=== PATIENT | female | born 1955 | race Caucasian/White ===

== ENCOUNTER 2016-10-18 11:53 | Emergency (ER) | payer OTHER ==
[~2016-10-18] VITALS: Ht 157.5 cm; Wt 91.0 kg
[~2016-10-18 11:53] MED LIST: CYCL5TAB PO; LORT5TAB PO; PIOG15 PO
[2016-10-18 11:58] VITALS: BP 128/67; PULSE 98; RESP 16; TEMP 98.7; O2SAT 97
[2016-10-18] MEDS ORDERED: SODIUM CHLOR 0.9% 1000 ML INJ 1,000 ML IV SCH (12:09)
[2016-10-18] MEDS ORDERED: KETOROLAC TROMETHAMINE 30 MG/ML (IVP) VIAL IVP ONE (12:15)
--- NOTE | 2016-10-18 12:18 | PD ---
HPI Chief Complaint: General Weakness Time Seen by Provider: 12:11 Travel History International Travel<30 days: No Contact w/Intl Traveler<30days: No Traveled to known affect area: No History of Present Illness HPI 61-year-old female that presents to the ED for evaluation of possible UTI. Per patient she's had symptoms since Thursday. Per patient she has polyuria, dysuria , cloudy urine and urgency for the past week. Per patient's symptoms seem to be worsening. Per patient she has pressure on her bladder as well as pain on her left flank. She denies any surgeries. Per patient she does have a history of UTIs. She also mentions to me that she has a history of diabetes and takes metformin for it but she unfortunately lost her insurance and she only takes an metformin here and there. Per patient she doesn't really check her sugars. She states that the metformin does give her diarrhea. She denies any chest pain or shortness of breath. She states that he feels weak and has chills. Denies any actual fevers. Per patient the discomfort 6 out of 10 when she urinates. Pain is 4 out of 10 in the flank. Gets worse when she urinates. She has not seen anybody for this. She also has a rash on her legs and her breasts that is itchy and pruritic. Not painful. She's had this for over a month but has not seen anybody for it or has done something for it. PFSH Past Medical History Hx Anticoagulant Therapy: No Cardiovascular Problems: Yes (CHOL) Diabetes: Yes Genitourinary: Yes (HX KIDNEY STONE) Respiratory: No ?: Not Menopausal: Yes Past Surgical History Hysterectomy: No Social History Alcohol Use: No Tobacco Use: Yes (1 PPD FOR 30 YEARS) Substance Use: No Allergies-Medications (Allergen,Severity, Reaction): Coded Allergies: No Known Allergies (Verified , 10/18/16) Reported Meds & Prescriptions Reported Meds & Active Scripts Active Miconazole Topical 2% Cream 1 Applic TOPICAL BID 14 Days Pyridium (Phenazopyridine HCl) 200 Mg Tab 200 Mg PO Q8H PRN Diclofenac Sodium DR (Diclofenac Sodium) 75 Mg Tabdr 75 Mg PO BID PRN Metformin (Metformin HCl) 1,000 Mg Tab 1,000 Mg PO BIDPC With meals Cipro (Ciprofloxacin HCl) 500 Mg Tab 500 Mg PO BID 7 Days Reported Metformin (Metformin HCl) 500 Mg Tab Unknown Dose PO DIRECTED With meals Review of Systems General / Constitutional: Positive: Chills Eyes: No: Diploplia, Blurred Vision, Photophobia, Drainage, Redness, Foreign Body Sensation, Pain, Tearing, Blind Spots, Visual changes, Blindness, Other HENT: No: Headaches, Vertigo, Lightheadedness, Sore Throat, Rhinitis, Rhinorrhea, Congestion, Nosebleed, Neck Stiffness, Neck Pain, Masses, Gingival Bleeding, Dental Difficulties, Ear Discharge, Earache, Other Cardiovascular: No: Chest Pain or Discomfort, Palpitations, Irregular Rhythm, Tachycardia, Diaphoresis, Syncope, Dyspnea on exertion, Varicosities, Edema, Cyanosis, Varicosities, Phlebitis, Claudication, Other Respiratory: No: Cough, Shortness of Breath, Wheezing, Sneezing, Orthopnea, Hemoptysis, Stridor, Night Sweats, Pleuritic Pain, Other Gastrointestinal: Positive: Abdominal Pain, No: Nausea, Vomiting, Diarrhea, Hematemesis, Hematochezia, Constipation, Changes in Bowel Habits, Indigestion, Dysphagia, Loss of Appetite, Other Genitourinary: Positive: Urgency, Frequency, Dysuria, Nocturia, Flank Pain, No : Hematuria, Decreased Urinary Output, Oliguria, Hesitancy, Dribbling, Incontinence, Pelvic Pain, Dyspareunia, Discharge, Dysmenorrhea, Menorrhagia, Metorrhagia, Vaginal Bleeding, Other Musculoskeletal: No: Myalgias, Arthralgias, Limited ROM, Weakness, Cramping, Edema, Pain, Atrophy, Other Skin: Positive Rash, Positive Itching, No Dryness, No Lumps, No Hives, No Change in Pigmentation, No Change in nails, No Alopecia, No Lesions, No Breast Lumps, No Breast Tenderness, No Breast Swelling, No Other Neurologic: No: Weakness, Dizziness, Syncope, Focal Abnormalities, Coordination Problem, Tremor, Ataxia, Headache, Change in Mentation, Slurred Speech, Paresthesia, Incontinence, Seizures, Sensory Disturbance, Other Psychiatric: No: Anxiety, Depression, Suicidal Ideations, Disorder of Thought, Mood Disorder, Substance Abuse, Homicidal Ideation, Other Endocrine: No: Heat Intolerance, Cold Intolerance, Polyuria, Polydipsia, Other Hematologic/Lymphatic: No: Easy Bruising Physical Exam Narrative GENERAL: SKIN: Warm and dry. Seen with female nurse present. Patient has a macular raised erythematous rash with a clear center noted on the skin. The breasts as well as in the legs. Pruritic and not painful. Surgical and not painful. No lymphadenopathy noted. HEAD: Atraumatic. Normocephalic. EYES: Pupils equal and round. No scleral icterus. No injection or drainage. ENT: No nasal bleeding or discharge. Mucous membranes pink and moist. Tongue is midline, no uvula deviation. NECK: Trachea midline. No JVD. CARDIOVASCULAR: Regular rate and rhythm. No murmurs, S3, S4. RESPIRATORY: No accessory muscle use. Clear to auscultation. Breath sounds equal bilaterally. GASTROINTESTINAL: Abdomen soft, non-tender, nondistended. Hepatic and splenic margins not palpable. MUSCULOSKELETAL: Extremities without clubbing, cyanosis, or edema. No obvious deformities. Full ROM of the upper and lower extremities bilaterally. 2+ pulses bilaterally. No obvious CVA tenderness. NEUROLOGICAL: Awake and alert. No obvious cranial nerve deficits. Motor grossly within normal limits. Five out of 5 muscle strength in the arms and legs. Normal speech. PSYCHIATRIC: Appropriate mood and affect; insight and judgment normal. Data Data Last Documented VS Vital Signs Date Time Temp Pulse Resp B/P Pulse Ox O2 Delivery O2 Flow Rate FiO2 10/18/16 11:58 98.7 98 16 128/67 97 Orders Complete Blood Count With Diff (10/18/16 12:09) Basic Metabolic Panel (Bmp) (10/18/16 12:09) Urinalysis - C+S If Indicated (10/18/16 12:09) Magnesium (Mg) (10/18/16 12:09) Iv Access Insert/Monitor (10/18/16 12:09) Sodium Chlor 0.9% 1000 Ml Inj (Ns 1000 M (10/18/16 12:09) Ketorolac Inj (Toradol Inj) (10/18/16 12:15) Cath For Specimen (10/18/16 12:48) Insulin Human Regular Inj (Novolin R Inj (10/18/16 13:00) Urine Culture (10/18/16 12:55) Ceftriaxone Inj (Rocephin Inj) (10/18/16 13:15) Blood Glucose (10/18/16 13:28) Labs Laboratory Tests Test 10/18/16 10/18/16 12:15 12:55 White Blood Count 7.4 TH/MM3 Red Blood Count 5.22 MIL/MM3 Hemoglobin 15.2 GM/DL Hematocrit 45.5 % Mean Corpuscular Volume 87.3 FL Mean Corpuscular Hemoglobin 29.1 PG Mean Corpuscular Hemoglobin 33.4 % Concent Red Cell Distribution Width 11.8 % Platelet Count 250 TH/MM3 Mean Platelet Volume 6.8 FL Neutrophils (%) (Auto) 67.9 % Lymphocytes (%) (Auto) 22.4 % Monocytes (%) (Auto) 7.2 % Eosinophils (%) (Auto) 2.0 % Basophils (%) (Auto) 0.5 % Neutrophils # (Auto) 5.1 TH/MM3 Lymphocytes # (Auto) 1.7 TH/MM3 Monocytes # (Auto) 0.5 TH/MM3 Eosinophils # (Auto) 0.1 TH/MM3 Basophils # (Auto) 0.0 TH/MM3 CBC Comment DIFF FINAL Differential Comment Sodium Level 131 MEQ/L Potassium Level 5.6 MEQ/L Chloride Level 95 MEQ/L Carbon Dioxide Level 26.7 MEQ/L Anion Gap 9 MEQ/L Blood Urea Nitrogen 18 MG/DL Creatinine 0.98 MG/DL Estimat Glomerular Filtration 58 ML/MIN Rate Random Glucose 531 MG/DL Calcium Level 9.0 MG/DL Magnesium Level 2.1 MG/DL Urine Collection Type CATH Urine Color YELLOW Urine Turbidity CLEAR Urine pH 6.0 Urine Specific [place] 1.030 Urine Protein 100 mg/dL Urine Glucose (UA) 1000 OR GREATER mg/dL Urine Ketones NEG mg/dL Urine Occult Blood SMALL Urine Nitrite POS Urine Bilirubin NEG Urine Leukocyte Esterase NEG Urine RBC 0-3 /hpf Urine Amorphous Sediment FEW Microscopic Urinalysis Comment CULTURE INDICATED MDM Medical Decision Making Medical Screen Exam Complete: Yes Emergency Medical Condition: Yes Medical Record Reviewed: Yes Interpretation(s) CBC & BMP Diagram 10/18/16 12:15 UA shows glucose, leukerase esterase, nitrates Differential Diagnosis UTI versus pyelonephritis versus cystitis versus URI versus tinea corporis versus normal exam Narrative Course 61-year-old female that presents to the ED for evaluation of UTI like symptoms and rash. Patient was properly examined and was found to have signs and symptoms consistent with appears to be tinea corporis and possible UTI versus nephritis. Because of patient's symptoms and length of symptoms and being noncompliant diabetic and recommended labs and fluids as well as treatment for pain with Toradol. Patient is agreeable with plan. Labs showed what appears to be UTI as well as hyperglycemia. Patient doesn't have an anion gap. This does not appear to be DKA but mainly noncompliance with medication secondary to insurance issues. Patient will be given information for patient assistance program to have follow-up. I will give her a refill of her metformin at this time. Patient was given fluids and insulin here to help with her sugars. She will be given a prescription for Cipro, Pyridium, diclofenac sodium for her pain and her UTI. Patient was given a prescription for miconazole topical to help with her to go tinea corporis. Told to follow with PCP. See ED for worsening symptoms. Case was discussed in my attending who evaluated the patient with me and agrees with plan. Diagnosis Primary Impression: Cystitis Additional Impressions: Tinea corporis Diabetes Qualified Code: E11.9 - Type 2 diabetes mellitus without complication, without long-term current use of insulin Patient Instructions: General Instructions Additional Instructions: Take medications as prescribed. Follow-up with patient assistance for primary care assistance and further evaluation and treatment of your diabetes. Drink plenty of fluids. Avoid carbohydrates. See ED for any worsening symptoms. Apply cream as prescribed twice a day for at least 2 weeks before you'll see any difference. I gave him multiple referrals to use until the rash completely goes away. It will take at least a month or 2 before the rash completely dissipates. Med/Other Pt SpecificInfo: Prescription(s) given Scripts Miconazole Topical 2% Cream1 Applic TOPICAL BID 14 Days Ref 2 Prov:Bela Puckett DO 10/18/16 Phenazopyridine (Pyridium)200 Mg [id number] Mg PO Q8H PRN (DYSURIA) #20 TAB Ref 0 Prov:Bela Puckett DO 10/18/[address] 75 Mg Tabdr75 Mg PO BID PRN (PAIN SCALE 1 TO 10) #20 TAB Prov:Bela Puckett DO 10/18/16 Metformin 1,000 Mg Tab1,000 Mg PO BIDPC #60 TAB Ref 0 With meals Prov:Bela Puckett DO 10/18/16 Ciprofloxacin (Cipro)500 Mg Ugu274 Mg PO BID 7 Days Prov:Bela Puckett DO 10/18/16 Disposition: 01 DISCHARGE HOME Condition: Stable David Lee PA Oct 18, 2016 12:18
[2016-10-18 12:21] LABS: AUTOMATED NEUTROPHIL # 5.1 TH/MM3 (1.8-7.7); BASOPHIL % 0.5 % (0.0-2.0); EOSINOPHIL # 0.1 TH/MM3 (0-0.4); HEMATOCRIT 45.5 % (35.0-46.0); HEMO FLAGS DIFF FINAL; LYMPH % 22.4 % (9.0-44.0); LYMPHOCYTE # 1.7 TH/MM3 (1.0-4.8); MEAN CELL VOLUME 87.3 FL (80.0-100.0); MEAN CORPUSCULAR HEMOGLOBIN 29.1 PG (27.0-34.0); MEAN CORPUSCULAR HGB CONC 33.4 % (32.0-36.0); MONO % 7.2 % (0.0-8.0); NEUT % 67.9 % (16.0-70.0); PLATELET COUNT 250 TH/MM3 (150-450); RED BLOOD COUNT 5.22 MIL/MM3 (4.00-5.30); RED CELL DISTRIBUTION WIDTH 11.8 % (11.6-17.2); WHITE BLOOD COUNT 7.4 TH/MM3 (4.0-11.0)
[2016-10-18] MEDS ORDERED: METF500T PO (12:28)
[2016-10-18 12:34] LABS: BICARBONATE 26.7 MEQ/L (21.0-32.0); MAGNESIUM 2.1 MG/DL (1.5-2.5)
[2016-10-18 12:52] LABS: POTASSIUM 5.6 MEQ/L (3.5-5.1)
[2016-10-18 12:59] LABS: BLOOD, URINE SMALL (NEG); GLUCOSE,URINE 1000 OR GREATER mg/dL (NEG); KETONE, URINE NEG (NEG); NITRITE,URINE POS (NEG)
[2016-10-18] MEDS ORDERED: INSULIN HUMAN REGULAR 1,000 UNITS/10 ML VIAL SQ ONE ×2 (13:00→14:00)
[2016-10-18 13:06] LABS: COMMENT (UR) CULTURE INDICATED; CULTURE IF INDICATED CULTURE INDICATED; METHOD OF COLLECTION CATH; RBC, URINE 0-3 /hpf (0-3); URINE COLOR YELLOW (YELLW/STRAW)
[2016-10-18] MEDS ORDERED: cefTRIAXone INJ 1,000 MG in SODIUM CHLORIDE 0.9% INJ 100 ML IV ONE (13:15)
[2016-10-18] MEDS ORDERED: MICO2CRE34 TOPICAL (13:35)
[2016-10-18] MEDS ORDERED: PYRI200T4 PO (13:35)
[2016-10-18] MEDS ORDERED: CIPR-9 PO (13:35)
[2016-10-18] MEDS ORDERED: DICL75TA PO (13:35)
[2016-10-18] MEDS ORDERED: METF1000 PO (13:35)
[2016-10-18 14:31] VITALS: BP 116/60; PULSE 81; RESP 17; O2SAT 94
== END 2016-10-18 15:33 | disposition home or self-care (01) ==
LOC: PHED 11:53
DX: N30.90 Cystitis, unspecified without hematuria (principal); B35.4 Tinea corporis; E11.9 Type 2 diabetes mellitus without complications; F17.210 Nicotine dependence, cigarettes, uncomplicated; B96.29 Other Escherichia coli [E. coli] as the cause of diseases classified elsewhere
CPT/HCPCS: 80048; 81001; 83735; 85025; 87077; 87086; 87186; 96361; 96365; 96372; 96375; 99284; J0696; J1815; J1885; J7030; P9612